=== PATIENT | female | born 1945 | race American Indian/Alaskan Native ===

== ENCOUNTER 2019-05-20 15:47 | Emergency (ER) | payer MEDICARE ==
[2019-05-20] MEDS ORDERED: HYDROcodone/ACETAMINOPHEN 5-325 MG TAB PO ONE (19:33)
[2019-05-20] MEDS ORDERED: ONDANSETRON 4 MG ODT TAB PO ONE (19:33)
--- NOTE | 2019-05-20 19:36 | Emergency Department Report ---
HPI - General Chief Complaint: Abdominal Pain Time Seen by Provider: 05/20/19 19:16 - HPI HPI: 73-year-old -Citizen Of [place] female presents to the emergency department from home with complaint of upper abdominal pain, worse on the right side, nausea and vomiting since waking up this morning. Patient says that she ate some [place] fried chicken last night. She has a past history of anemia, hypertension, chronic kidney disease, previous thyroidectomy. She has not taken anything for her symptoms prior to presentation. No recent travel or sick contacts at home. She does not currently have a primary care physician. ED Past Medical Hx - Medications Home Medications: Home Medications Medication Instructions Recorded Confirmed Last Taken Type HYDROcodone/APAP 5-325 [Ashdown 1 each PO Q6HR PRN #12 tablet 05/20/19 Unknown Rx 5/325] Ondansetron [Zofran Odt] 4 mg PO Q8HR PRN #14 tab.rapdis 05/20/19 Unknown Rx ED Review of Systems ROS: Stated complaint: STOMACH/RT SIDE PAIN Other details as noted in HPI Comment: All other systems reviewed and negative Constitutional: denies: chills, fever Eyes: denies: eye pain, vision change ENT: denies: ear pain, throat pain Respiratory: denies: cough, shortness of breath Cardiovascular: denies: chest pain, palpitations Gastrointestinal: abdominal pain, nausea, vomiting Genitourinary: denies: dysuria, discharge Musculoskeletal: denies: back pain, arthralgia Skin: denies: rash, lesions Neurological: denies: headache, weakness Physical Exam - Physical Exam Vital Signs: Vital Signs 05/20/19 19:14 Temperature 98.4 F Pulse Rate 76 Respiratory 17 Rate Blood Pressure 184/66 [Left] O2 Sat by Pulse 99 Oximetry Physical Exam: GENERAL: The patient is well-developed well-nourished. HEENT: Normocephalic. Atraumatic. Patient has moist mucous membranes. EYES: Extraocular motions are intact. NECK: Supple. Trachea is midline CHEST/LUNGS: Clear to auscultation. There is no respiratory distress noted. HEART/CARDIOVASCULAR: Regular. There is no tachycardia. ABDOMEN: Abdomen is soft. There is epigastric and right upper quadrant abdominal tenderness to palpation. No guarding. Patient has normal bowel sounds. There is no abdominal distention. SKIN: Skin is warm and dry. NEURO: The patient is awake, alert, and oriented. The patient is cooperative. The patient has no focal neurologic deficits. Normal speech. MUSCULOSKELETAL: There is no tenderness or deformity. There is no evidence of acute injury. ED Course Vital Signs 05/20/19 19:14 Temperature 98.4 F Pulse Rate 76 Respiratory 17 Rate Blood Pressure 184/66 [Left] O2 Sat by Pulse 99 Oximetry ED Medical Decision Making - Lab Data Result diagrams: 05/20/19 19:43 05/20/19 19:43 - Radiology Data Radiology results: report reviewed ULTRASOUND ABDOMEN, LIMITED (RIGHT UPPER QUADRANT) INDICATION: RUQ abd pain. COMPARISON: None available. FINDINGS: Pancreas: Visualized portion shows no significant abnormality. Liver: Normal. Gallbladder: No stones or wall thickening but there is moderate sludge present. Bile ducts: Normal. Common Bile Duct measures 0.6 mm. Free fluid: None. Additional Findings: Multiple right renal cysts are noted. IMPRESSION: 1. Gallbladder sludge. - Medical Decision Making This patient woke up this morning with some middle upper and right upper qu adrant abdominal pain, nausea and vomiting. On examination she does have some reproducible tenderness to palpation in these areas of her abdomen. The abdomen is soft, nondistended and nontoxic in appearance. Vital signs stable throughout her ED course including being afebrile. Labs have been mostly unremarkable. Mild leukocytosis. Abdominal x-ray shows nonspecific nonobstructive bowel gas. An upper abdominal ultrasound shows gallbladder sludge without signs of cholecystitis. Patient was given some Zofran and a Ashdown and upon reevaluation she is feeling improved. She appears safe for d ischarge home at this time. She does have some hypertension but has yet to take her nighttime blood pressure medications. She has been given referrals for primary care and general surgery. She will return to the emergency Department with any worsening of her symptoms or any acute distress. - Differential Diagnosis cholelithiasis, cholecystitis, pancreatitis, hepatitis Critical Care Time: No Critical care attestation.: If time is entered above; I have spent that time in minutes in the direct care of this critically ill patient, excluding procedure time. ED Disposition Clinical Impression: Gallbladder sludge, Biliary colic Hypertension Qualifiers: Hypertension type: essential hypertension Qualified Code(s): I10 - Essential (primary) hypertension Abdominal pain Qualifiers: Abdominal location: generalized Qualified Code(s): R10.84 - Generalized abdominal pain Disposition: TO HOME OR SELFCARE Is pt being admited?: No Condition: Stable Instructions: Biliary Colic (ED), Abdominal Pain (ED), Hypertension (ED) Additional Instructions: Please follow up with a primary care physician in the next few days. I'm giving him a referral for a local general surgeon, Dr. Martinez, to follow up regarding your gallbladder sludge and biliary colic. Return to the emergency Department with any worsening of your symptoms or any acute distress. Try and stay away from foods that are high in salt and caffeinated products to help with her blood pressure. Keep a blood pressure log. You are being prescribed a pain medication be sedating. Therefore, this medication cannot be taken prior to driving, working, being responsible for children, and cannot be mixed with alcohol of any quantity. Prescriptions: HYDROcodone/APAP 5-325 [Ashdown 5/325] 1 each PO Q6HR PRN #12 tablet PRN Reason: Pain Ondansetron [Zofran Odt] 4 mg PO Q8HR PRN #14 tab.rapdis PRN Reason: Nausea Referrals: PRIMARY CARE, [Primary Care Provider] - 3-5 Days BERTA MARTINEZ DO [Staff Physician] - 3-5 Days YANA RESENDEZ MD [Staff Physician] - 3-5 Days [facility] [Outside] - 3-5 Days Time of Disposition: 23:12
[2019-05-20 20:10] LABS: Hematocrit 36.1 % (30.3-42.9); Hemoglobin 11.6 gm/dl (10.1-14.3); Mean Corpuscular HGB Conc 32 % (30-34); Mean Corpuscular Volume 94 fl (79-97); Platelet Count 207 K/mm3 (140-440); Red Blood Count 3.85 M/mm3 (3.65-5.03)
--- NOTE | 2019-05-20 20:18 | XRay Report ---
FLAT AND UPRIGHT VIEWS OF THE ABDOMEN, 3 IMAGES INDICATION: abd pain. COMPARISON: No relevant prior imaging study available. FINDINGS: No dilated loops of bowel are seen. No free air is identified. Punctate calcifications projecting ove r the left hemisacrum could be phleboliths but are nonspecific. No calcifications project over either kidney. IMPRESSION: 1. No radiographic evidence of acute abdomen. 2. Punctate calcifications projecting over the left hemisacrum could be phleboliths. If there is clin ical concern for left-sided ureteral stones, CT should be considered. Signer Name: Marin Lopez MD Signed: 05/20/2019 8:13 PM Workstation Name: [id number]
[2019-05-20 20:37] LABS: Bilirubin,Direct 0.2 mg/dL (0-0.2); Calcium 9.5 mg/dL (8.4-10.2)
[2019-05-20 20:44] LABS: Basophils % (Manual) 0 % (0.0-1.8); Eosinophils % (Manual) 0 % (0.0-4.3); RBC Morphology Normal; Total Cells Counted 100
--- NOTE | 2019-05-20 21:26 | Ultrasound Report ---
ULTRASOUND ABDOMEN, LIMITED (RIGHT UPPER QUADRANT) INDICATION: RUQ abd pain. COMPARISON: None available. FINDINGS: Pancreas: Visualized portion shows no significant abnormality. Liver: Normal. Gallbladder: No stones or wall thickening but there is moderate sludge present. Bile ducts: Normal. Common Bile Duct measures 0.6 mm. Free fluid: None. Additional Findings: Multiple right renal cysts are noted. IMPRESSION: 1. Gallbladder sludge. Signer Name: Cy Resendez MD Signed: 05/20/2019 9:21 PM Workstation Name: [id number]
[2019-05-20 22:57] LABS: Bilirubin,Urine NEG (Negative); Blood,Urine MOD (Negative); Color,Urine Yellow (Yellow); Mucus,Urine FEW /HPF; Urobilinogen,Urine < 2.0 mg/dL (<2.0)
[2019-05-20 23:46] VITALS: BP 146/62
== END 2019-05-20 23:47 | disposition home or self-care (01) ==
LOC: ED 15:47
DX: K82.8 Other specified diseases of gallbladder (principal); K80.50 Calculus of bile duct without cholangitis or cholecystitis without obstruction; I10 Essential (primary) hypertension
CPT/HCPCS: 36415; 74019; 76705; 80048; 80076; 81001; 83690; 85007; 85025; Q0162